=== PATIENT | male | born 1975 | race Two or more races ===

== ENCOUNTER → 2018-12-13 | Outpatient (CLI) | payer OTHER | END | disposition home or self-care (01) | LOC: RAD 501 10:37 | DX: M25.562 Pain in left knee (principal) ==

== ENCOUNTER 2019-01-17 15:57 | Outpatient (CLI) | payer OTHER | END 2019-01-17 16:20 | disposition home or self-care (01) | LOC: RAD 501 15:57 | DX: M21.162 Varus deformity, not elsewhere classified, left knee (principal) ==

== ENCOUNTER 2019-02-07 09:42 | Outpatient (CLI) | payer OTHER | END 2019-02-07 09:58 | disposition home or self-care (01) | LOC: RAD 501 09:42 | DX: M25.562 Pain in left knee (principal) ==

== ENCOUNTER → 2019-05-13 09:25 | Outpatient (CLI) | payer OTHER | END | disposition home or self-care (01) | LOC: LAB 09:25 | DX: D64.89 Other specified anemias (principal); E88.89 Other specified metabolic disorders; D68.8 Other specified coagulation defects; N39.0 Urinary tract infection, site not specified; Z22.322 Carrier or suspected carrier of Methicillin resistant Staphylococcus aureus; Z76.89 Persons encountering health services in other specified circumstances; I49.8 Other specified cardiac arrhythmias ==

== ENCOUNTER → 2019-05-27 | Outpatient (CLI) | payer OTHER | END | disposition home or self-care (01) | LOC: RAD 10:04 | DX: M21.162 Varus deformity, not elsewhere classified, left knee (principal); M17.11 Unilateral primary osteoarthritis, right knee ==

== ENCOUNTER 2019-05-28 06:00 | Day surgery (SDC) | payer OTHER | END 2019-05-28 21:00 | disposition home or self-care (01) | LOC: CIR.AMB 06:00 | DX: M23.322 Other meniscus derangements, posterior horn of medial meniscus, left knee (principal); M12.262 Villonodular synovitis (pigmented), left knee; M21.162 Varus deformity, not elsewhere classified, left knee ==

== ENCOUNTER 2019-06-06 08:41 | Outpatient (CLI) | payer OTHER | END 2019-06-06 08:54 | disposition home or self-care (01) | LOC: LAB 08:41 | DX: D64.89 Other specified anemias (principal); M06.4 Inflammatory polyarthropathy ==

== ENCOUNTER 2019-07-04 09:31 | Outpatient (CLI) | payer OTHER | END 2019-07-04 15:00 | disposition home or self-care (01) | LOC: LAB 09:31 | DX: M06.4 Inflammatory polyarthropathy (principal); D64.89 Other specified anemias; M76.812 Anterior tibial syndrome, left leg ==

== ENCOUNTER → 2019-09-04 | Outpatient (CLI) | payer OTHER | END | disposition home or self-care (01) | LOC: RAD 09:50 | DX: M21.162 Varus deformity, not elsewhere classified, left knee (principal); M17.12 Unilateral primary osteoarthritis, left knee; M25.562 Pain in left knee ==

== ENCOUNTER 2019-09-23 11:35 | Outpatient (CLI) | payer OTHER | END 2019-09-23 11:45 | disposition home or self-care (01) | LOC: LAB 11:35 | DX: E56.1 Deficiency of vitamin K (principal) ==

== ENCOUNTER 2019-10-02 09:52 | Outpatient (CLI) | payer OTHER | END 2019-10-02 09:54 | disposition home or self-care (01) | LOC: RAD 09:52 | DX: M21.162 Varus deformity, not elsewhere classified, left knee (principal); M17.12 Unilateral primary osteoarthritis, left knee; M25.562 Pain in left knee ==

== ENCOUNTER 2019-11-06 10:55 | Outpatient (CLI) | payer OTHER | END 2019-11-06 11:00 | disposition home or self-care (01) | LOC: RAD 10:55 | DX: M21.162 Varus deformity, not elsewhere classified, left knee (principal); M17.12 Unilateral primary osteoarthritis, left knee; M25.562 Pain in left knee ==

== ENCOUNTER 2020-04-13 11:21 | Outpatient (CLI) | payer OTHER | END 2020-04-13 11:34 | disposition home or self-care (01) | LOC: RAD 11:21 | DX: M21.162 Varus deformity, not elsewhere classified, left knee (principal); M17.12 Unilateral primary osteoarthritis, left knee; M25.561 Pain in right knee ==

== ENCOUNTER 2022-03-24 11:23 | Outpatient (CLI) | payer OTHER | END 2022-03-24 11:43 | disposition home or self-care (01) | LOC: RAD 11:23 | PROVIDERS: ATTEND Orthopaedic Surgery | DX: M79.605 Pain in left leg (principal); M54.50 Low back pain, unspecified; M79.672 Pain in left foot ==

== ENCOUNTER → 2025-09-24 | Outpatient (CLI) | payer OTHER | END | disposition home or self-care (01) | LOC: RAD 11:40 | PROVIDERS: ATTEND Orthopaedic Surgery | DX: M25.511 Pain in right shoulder (principal); M17.12 Unilateral primary osteoarthritis, left knee; M23.92 Unspecified internal derangement of left knee ==